=== PATIENT | female | born 1975 | race Caucasian/White ===

== ENCOUNTER 2019-08-21 01:17 | Emergency (ER) | payer OTHER ==
[~2019-08-21] VITALS: Ht 165.1 cm; Wt 63.5 kg
[2019-08-21 01:23] VITALS: BP 138/94
[2019-08-21 01:33] VITALS: BP 138/94
== END 2019-08-21 01:33 ==
LOC: MED 01:17
DX: I10 Essential (primary) hypertension (principal); Z02.89 Encounter for other administrative examinations; Z88.0 Allergy status to penicillin; Z88.5 Allergy status to narcotic agent; V89.2XXA Person injured in unspecified motor-vehicle accident, traffic, initial encounter; Y93.89 Activity, other specified; Y92.89 Other specified places as the place of occurrence of the external cause; Y99.8 Other external cause status
CPT/HCPCS: 99283